=== PATIENT | female | born 1960 | race Caucasian/White ===

== ENCOUNTER → 2018-06-07 | Outpatient (CLI) | payer MEDICAID ==
[2018-06-07 10:08] VITALS: BP 146/83; PULSE 92; TEMP 97.7; BMI 34.3
--- NOTE | 2018-06-07 10:46 | P.HPOB ---
History of Present Illness H&P Date: 06/07/18 Chief Complaint: The patient is here for her routine gynecologic exam and mammogram. This is a 57-year-old G3 PIII with an LMP of 2006. She is status post BATSHEVA BSO for benign reasons. The patient is without gynecologic complaints. Review of Systems The patient has gained 12 pounds over the last year. She has recently started to try to eat healthier. She denies respiratory, cardiac, or G.I. problems. 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 She has no history of STDs. History of Any Multi-Drug Resistant Organisms: None Reported Past Surgical History: Section (Times 3), Hysterectomy (BATSHEVA BSO in 2006 ) Additional Past Surgical History / Comment(s): Colonoscopy 2011. Past Psychological History: No Psychological Hx Reported Smoking Status: Unknown if ever smoked Past Alcohol Use History: Occasional (4 per month) Past Drug Use History: None Reported Additional History: She is and is currently not seeing anybody at this time. 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. - Past Family History Father Family Medical History: Myocardial Infarction ([place]) Mother Family Medical History: Deep Vein Thrombosis (DVT) Medications and Allergies Home Medications Medication Instructions Recorded Confirmed Type No Known Home Medications 06/07/18 06/07/18 History Allergies Allergy/AdvReac Type Severity Reaction Status Date / Time No Known Allergies Allergy Unverified 06/07/18 10:02 Exam Vital Signs Temp Pulse BP 06/07/18 10:02 97.7 F 92 146/83 Intake and Output 06/06/18 06/07/18 06/07/18 22:59 06:59 14:59 Other: Weight 90.718 kg This is a well-developed well-nourished heavyset white female who is alert and oriented times 3 in no acute distress. HEENT: Within normal limits. NECK: Supple without mass or thyromegaly. CHEST AND LUNGS: Clear to auscultation. HEART: Regular rate and rhythm. BREASTS: Are without mass or discharge. AXILLARY EXAM: Negative for adenopathy. BACK: Negative for CVA tenderness. ABDOMEN: Soft, obese, nontender, without palpable masses. There is erythema in the crease beneath the left panus and in the crease of the groin. This area measures approximately 10 x 5 cm. PELVIC EXAM: External genitalia appears normal with mild atrophy. Vagina appears normal with mild atrophy. There is no evidence of prolapse. Bimanual examination is negative for mass or tenderness. RECTAL EXAM: Rectovaginal exam is negative for mass or tenderness and is negative for occult blood. EXTREMITIES: Nontender. IMPRESSION: 1. 57-year-old menopausal female status post BATSHEVA BSO with normal gynecologic exam. 2. Erythema intertrigo go in the crease of the left groin and beneath the panus. 3. Mildly elevated blood pressure. PLAN: 1. Pap smears have been discontinued. 2. Self breast awareness was discussed. 3. Screening mammogram will be done today. 4. STD prevention was discussed. 5. An electronic prescription will be sent for nystatin powder b.i.d. to the affected area. The prescription will be sent to [facility] pharmacy. 6. I have recommended that she check her own blood pressure on a regular basis. She will follow-up with Dr. Darrick Santana for blood pressure elevations and for her abnormal fasting blood sugar from last year. She states she will make an appointment to see him. 7. Have recommended that she eat healthier for weight control. 8. She will return one year.
--- NOTE | 2018-06-08 10:10 | MM ---
Reason for exam: screening (asymptomatic). Last mammogram was performed 2 years and 1 month ago. History: Patient is postmenopausal. Took estrogen for 3 years 6 months beginning at age 47. Physical Findings: A clinical breast exam by your physician is recommended on an annual basis and results should be correlated with mammographic findings. MG 3D Screening Mammo W/Cad Bilateral CC and MLO view(s) were taken. Prior study comparison: May 20, 2016, bilateral MG 3d screening mammo w/cad. June 05, 2014, bilateral MG screening mammo w CAD. The breast tissue is heterogeneously dense. This may lower the sensitivity of mammography. Finding: There are typically benign round calcifications in both breasts. There is no discrete abnormality. Stable grouped benign round calcifications in the left breast middle depth upper aspect. ASSESSMENT: Benign, BI-RAD 2 RECOMMENDATION: Routine screening mammogram of both breasts in 1 year.
== END ==
LOC: WWCWWP 09:54
PROVIDERS: ATTEND Obstetrics & Gynecology
DX: Z12.31 Encounter for screening mammogram for malignant neoplasm of breast (principal)
CPT/HCPCS: 77063; 77067

== ENCOUNTER → 2019-09-19 | Outpatient (CLI) | payer MEDICAID ==
--- NOTE | 2019-09-20 08:34 | MM ---
Reason for exam: screening (asymptomatic). Last mammogram was performed 1 year and 3 months ago. History: Patient is postmenopausal. Took estrogen for 3 years 6 months beginning at age 47. Physical Findings: A clinical breast exam by your physician is recommended on an annual basis and results should be correlated with mammographic findings. MG 3D Screening Mammo W/Cad Bilateral CC and MLO view(s) were taken. Prior study comparison: June 07, 2018, bilateral MG 3d screening mammo w/cad. May 20, 2016, bilateral MG 3d screening mammo w/cad. The breast tissue is heterogeneously dense. This may lower the sensitivity of mammography. Central asymmetric density right MLO view is more defined. ASSESSMENT: Incomplete: need additional imaging evaluation, BI-RAD 0 RECOMMENDATION: Special view mammogram of the right breast. (3D) If lesion persists on supplemental views, image directed ultrasound is recommended. [facility] will attempt to contact patient to return for supplemental views and ultrasound if indicated.
== END | disposition home or self-care (01) ==
LOC: RADMAMWWP 07:00
PROVIDERS: ATTEND Family Medicine
DX: Z12.31 Encounter for screening mammogram for malignant neoplasm of breast (principal)
CPT/HCPCS: 77063; 77067

== ENCOUNTER → 2019-10-02 | Outpatient (CLI) | payer MEDICAID ==
--- NOTE | 2019-10-03 08:27 | MM ---
Reason for exam: additional evaluation requested from abnormal screening. Last mammogram was performed less than 1 month ago. History: Patient is postmenopausal. Took estrogen for 3 years 6 months beginning at age 47. Physical Findings: Nurse did not find any significant physical abnormalities on exam. MG 3D Work Up W/Cad RT Spot compression CC, spot compression MLO, and LM view(s) were taken of the right breast. Prior study comparison: September 19, 2019, bilateral MG 3d screening mammo w/cad. June 07, 2018, bilateral MG 3d screening mammo w/cad. The breast tissue is heterogeneously dense. This may lower the sensitivity of mammography. Benign appearing calcifications in the right breast. No suspicious abnormality. These results were verbally communicated with the patient and result sheet given to the patient on 10/02/19. ASSESSMENT: Benign, BI-RAD 2 RECOMMENDATION: Return to routine screening mammogram schedule for both breasts.
== END | disposition home or self-care (01) ==
LOC: RADMAMWWP 14:12
PROVIDERS: ATTEND Family Medicine
DX: R92.8 Other abnormal and inconclusive findings on diagnostic imaging of breast (principal)
CPT/HCPCS: 77061; 77065

== ENCOUNTER → 2019-11-14 | Outpatient (CLI) | payer MEDICAID ==
--- NOTE | 2019-11-14 20:46 | CONS ---
CONSULTATION REASON FOR CONSULTATION: Sleep apnea. Vandana is 59. 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 She has been feeling very tired, fatigued and sleepy during the day. She is having difficulty with concentration. No falling asleep while driving. She also moved in with a fiance approximately a year ago and she has been noted to have loud snoring and apneas at night time. There is a high suspicion for sleep apnea, and based on that the patient came to see me here in the sleep center. She goes to bed around 9 p.m., wakes up at 5:15 a.m. in the morning. On weekends she sleeps between 10 p.m. and 7 a.m. in the morning. Her snoring is rather loud, especially when she drinks alcohol. Ahmeek Score is 6 for now. PAST MEDICAL HISTORY: Negative. PAST SURGICAL HISTORY: Her past surgical history includes and hysterectomy. DRUG ALLERGIES: NOT KNOWN. MEDICATIONS: None. SOCIAL HISTORY: Ex-smoker; quit 3 years ago. No history of alcoholism. No history of IV drugs. FAMILY HISTORY: Father had dementia. Mother had coronary artery disease and liver failure. REVIEW OF SYSTEMS: Fourteen-point review of systems was done. Positive findings were all mentioned above in the history of present illness. No insomnia. No choking or gasping sensation at night time. No restlessness in the lower extremities. No sleepwalking or sleeptalking. No anxiety or panic attacks. No palpitation. No heartburn. No claustrophobia. No anxiety. No depression. PHYSICAL EXAMINATION: VITAL SIGNS: BP is 127/80, pulse 91, respiratory rate 16, temperature 98.1, saturation 97% on room air. Height is 5 feet 3 inches, weight 200 and neck size 15-1/2 inches. Ahmeek Score is 6. BMI 34.9. GENERAL APPEARANCE: Calm, comfortable. HEAD: Atraumatic, normocephalic. She has dentures. NECK: Supple. No JVD. No goiter or neck masses. Mallampati class IV. LUNGS: Clear to auscultation. HEART: Heart sounds are regular rate and rhythm. Normal S1, S2. No S3, S4. No murmurs. ABDOMEN: Soft, nontender. No organomegaly. EXTREMITIES: No edema. No cyanosis or clubbing. NEUROLOGIC: Awake and alert. There is no focal neurological deficit. IMPRESSION: 1. Hypersomnia with high likelihood obstructive sleep apnea. Ahmeek score is 6, yet the patient has a high likelihood for sleep apnea based on her history of loud snoring and witnessed apneas. 2. Obesity with body mass index of 34.9. PLAN: 1. Proceed with a home sleep study to evaluate the patient for sleep apnea and treat accordingly. 2. Encourage weight loss. 3. Cut down the alcohol drinking, especially at night time. 4. Implement good sleep hygiene measures. 5. Will continue to follow. MMODL / IJN: [id number] /
== END | disposition home or self-care (01) ==
LOC: SLEEP 15:43
PROVIDERS: ATTEND Internal Medicine Critical Care Medicine
DX: G47.33 Obstructive sleep apnea (adult) (pediatric) (principal); E66.9 Obesity, unspecified; Z68.34 Body mass index [BMI] 34.0-34.9, adult; R53.83 Other fatigue; Z87.891 Personal history of nicotine dependence; Z90.710 Acquired absence of both cervix and uterus
CPT/HCPCS: 99211

== ENCOUNTER 2021-05-21 07:44 | Day surgery (SDC) | payer MEDICAID ==
--- NOTE | 2021-05-21 06:44 | P.GSHP ---
History of Present Illness H&P Date: 05/21/21 CHIEF COMPLAINT: Colon screen HISTORY OF PRESENT ILLNESS: The patient is a 60-year-old female who presents for colon screen. Lower endoscopy was offered for further evaluation and management. PAST MEDICAL HISTORY: Please see list. PAST SURGICAL HISTORY: Please see list. MEDICATIONS: Please see list. ALLERGIES: Please see list. SOCIAL HISTORY: No illicit drug use FAMILY HISTORY: No reports of Crohn disease or ulcerative colitis. REVIEW OF ORGAN SYSTEMS: CONSTITUTIONAL: No reports of fevers or chills. PHYSICAL EXAM: VITAL SIGNS: Stable GENERAL: Well-developed pleasant in no acute distress. HEENT: No scleral icterus. Extraocular movements grossly intact. Moist buccal mucosa. NECK: Supple without lymphadenopathy. CHEST: Unlabored respirations. Equal bilateral excursions. CARDIOVASCULAR: Regular rate and rhythm. Distal 2+ pulses. ABDOMEN: Soft, nontender, nondistended. MUSCULOSKELETAL: No clubbing, cyanosis, or edema. ASSESSMENT: 1. Colon screen. PLAN: 1. 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 She has no history of STDs. History of Any Multi-Drug Resistant Organisms: None Reported Past Surgical History: Section, Hysterectomy Additional Past Surgical History / Comment(s): Colonoscopy 2012,c section x3, cysts removed from wrist Past Anesthesia/Blood Transfusion Reactions: No Reported Reaction Smoking Status: Former smoker - Past Family History Father Family Medical History: Myocardial Infarction ([place]) Mother Family Medical History: Deep Vein Thrombosis (DVT) Medications and Allergies Home Medications Medication Instructions Recorded Confirmed Type No Known Home Medications 05/16/21 05/16/21 History Allergies Allergy/AdvReac Type Severity Reaction Status Date / Time No Known Allergies Allergy Unverified 05/16/21 15:20
[~2021-05-21 07:44] MED LIST: LACTATED RINGERS 1,000 ML IV SCH; LIDOCAINE 1% (10MG/ML) FOR IV START INTRADERMA PRN
[2021-05-21 08:12] VITALS: RESP 16; TEMP 96.9
[2021-05-21] MEDS ORDERED: PROPOFOL 10 MG/ML 20 ML VIAL IV ONE (08:31)
--- NOTE | 2021-05-21 09:07 | P.PCN ---
Date of Procedure: 05/21/21 Description of Procedure: PREOPERATIVE DIAGNOSIS: Personal history of colon polyps Colonoscopy screening POSTOPERATIVE DIAGNOSIS: Tubular adenoma sigmoid colon Sigmoid diverticulosis with stricture Internal and external hemorrhoids, grade 2 OPERATION: Colonoscopy to the ascending colon Colonoscopy with hot snare polypectomy SURGEON: Rose Hale MD. ANESTHESIA: MAC. INDICATIONS: The patient is an 60-year-old male personal history of colon polyps. Last colonoscopy 8 years ago. Benefits and risks were described and informed consent was obtained. DESCRIPTION OF PROCEDURE: The patient had undergone Sutab prep. The patient had been brought into the operating room and laid in the left lateral decubitus position. After adequate intravenous sedation, the rectum was examined with 2% lidocaine jelly. External hemorrhoids were encountered. The rectal tone was within normal limits. No l esions were palpated in the rectal vault. An Olympus colonoscope was advanced until the cecum, ileocecal valve and appendiceal orifice were clearly viewed. The prep was excellent. Sigmoid diverticulosis with highly redundant sigmoid colon and stricture at 30 cm from the anal verge was encountered. Colonic polyps were found and removed. No evidence of focal colitis was found. Retroflexion of the scope demonstrated grade 2 internal hemorrhoids without active bleeding or inflammation. The colon was desufflated. The patient had tolerated the procedure well. Withdrawal time was over 6 minutes. FINDINGS: Aronchick preparation quality scale 1 (1-5) Internal hemorrhoids, grade 2 External hemorrhoids, grade 2. No arteriovenous malformations. Sigmoid diverticulosis with stricture at 30 cm from the anal verge Highly redundant sigmoid colon Removal of 1 polyp: - Snare polypectomy 6 mm tubulovillous adenoma polyp, sigmoid colon No focal colitis. RECOMMENDATIONS: Repeat colonoscopy 2 years, 2022 Plan - Discharge Summary Discharge Rx Participant: No New Discharge Prescriptions: Continue No Known Home Medications Discharge Medication List No Known Home Medications 05/16/21 [History] Follow up Appointment(s)/Referral(s): Rose Hale MD [STAFF PHYSICIAN] - 05/27/21 Patient Instructions/Handouts: Diverticulosis Diet (GEN), Diverticulosis (GEN), Colorectal Polyps (GEN) Activity/Diet/Wound Care/Special Instructions: Repeat colonoscopy 2 years, 2022 Discharge Disposition: HOME SELF-CARE
[2021-05-21 09:18] VITALS: BP 98/66; PULSE 62
== END 2021-05-21 09:46 | disposition home or self-care (01) ==
LOC: ORWHC2ENDO 07:44
PROVIDERS: ATTEND Surgery Plastic and Reconstructive Surgery
DX: Z12.11 Encounter for screening for malignant neoplasm of colon (principal); K57.90 Diverticulosis of intestine, part unspecified, without perforation or abscess without bleeding; K64.8 Other hemorrhoids; K64.4 Residual hemorrhoidal skin tags; D12.5 Benign neoplasm of sigmoid colon; Z87.891 Personal history of nicotine dependence
CPT/HCPCS: 88305; 45385; J2704

== ENCOUNTER → 2021-05-26 | Outpatient (CLI) | payer MEDICAID ==
--- NOTE | 2021-05-30 13:26 | MM ---
Reason for exam: screening (asymptomatic). Last mammogram was performed 1 year and 8 months ago. History: Patient is postmenopausal. Took estrogen for 3 years 6 months beginning at age 47. Physical Findings: A clinical breast exam by your physician is recommended on an annual basis and results should be correlated with mammographic findings. MG 3D Screening Mammo W/Cad Bilateral CC and MLO view(s) were taken. Prior study comparison: October 02, 2019, right breast MG 3d work up w/cad RT. September 19, 2019, bilateral MG 3d screening mammo w/cad. The breast tissue is heterogeneously dense. This may lower the sensitivity of mammography. ASSESSMENT: Benign, BI-RAD 2 RECOMMENDATION: Routine screening mammogram of both breasts in 1 year.
== END | disposition home or self-care (01) ==
LOC: RADMAMWWP 12:56
PROVIDERS: ATTEND Family Medicine
DX: Z12.31 Encounter for screening mammogram for malignant neoplasm of breast (principal); Z78.0 Asymptomatic menopausal state; Z79.818 Long term (current) use of other agents affecting estrogen receptors and estrogen levels
CPT/HCPCS: 77063; 77067

== ENCOUNTER 2021-07-23 08:49 | Day surgery (SDC) | payer MEDICAID ==
[2021-07-17 17:31] VITALS: BMI 32.1
[~2021-07-23 08:49] MED LIST changes: +DEXAMETHASONE SOD PHOSPHATE 4 MG/ML 1 ML VIAL IV ONE; +DEXAMETHASONE SOD PHOSPHATE 4 MG/ML 1 ML VIAL IV PRN; +FAMOTIDINE 20 MG/2 ML VIAL IV PRN; +HYDROmorphone 0.5 MG/0.5 ML SYRINGE IVP PRN; -LIDOCAINE 1% (10MG/ML) FOR IV START INTRADERMA PRN; +ONDANSETRON 4 MG/2 ML VIAL IVP ONE; +ONDANSETRON 4 MG/2 ML VIAL IVP PRN; +OXYMETAZOLINE 0.05% NASL SPRAY 1 SPRAY BOTTLE EA NOSTRIL PRN
[2021-07-23] MEDS ORDERED: LIDOCAINE 1% (10MG/ML) FOR IV START INTRADERMA ONE (09:32)
[2021-07-23] MEDS ORDERED: LIDOCAINE 0.5%-EPI 1:200,000 50 ML VIAL SUBMUCOSAL ONE ×2 (10:16→10:37)
[2021-07-23] MEDS ORDERED: MIDAZOLAM 2 MG/2 ML VIAL ONE (10:20)
[2021-07-23] MEDS ORDERED: PROPOFOL 10 MG/ML 20 ML VIAL IV ONE (10:20)
[2021-07-23] MEDS ORDERED: SUCCINYLCHOLINE CHLORIDE 100 MG/5 ML SYR IV ONE (10:20)
[2021-07-23] MEDS ORDERED: fentaNYL (PF) 50 MCG/ML 2 ML AMP ONE (10:20)
[2021-07-23] MEDS ORDERED: LIDOCAINE 1% INJ 10MG/ML (20 ML MDV) ONE (10:20)
--- NOTE | 2021-07-23 10:58 | P.OP ---
Date of Procedure: 07/23/21 Preoperative Diagnosis: Deviated nasal septum Inferior turbinate hypertrophy Postoperative Diagnosis: Same Procedure(s) Performed: Septoplasty Outfracture and submucous resection of the inferior turbinates Anesthesia: MARIOA Surgeon: oBris Juarez Estimated Blood Loss (ml): 3 Pathology: other (Nasal septal bone and cartilage) Condition: stable Disposition: PACU Indications for Procedure: This 61-year-old white female with chronic nasal airway obstruction bilateral left greater than right Operative Findings: Nasal septum deviated to the left with inferior turbinate hypertrophy bilateral Description of Procedure: DESCRIPTION OF PROCEDURE: The patient was brought to the operative suite, placed in the supine position. The patient underwent induction of general anesthesia with oral endotracheal intubation without difficulty. The patient was prepped and draped in the usual aseptic fashion. 1% lidocaine with 1:100,000 epinephrine was infused submucosally on both sides of the nasal septum. While this was taking vasoconstrictive effect, the inferior turbinates were infractured with a [place] elevator. Partial submucous resection of the inferior turbinates was performed with Coblation device ablating a portion of the submucosal and inferior turbinate bone soft tissue. The inferior turbinates were then outfractured with a [place] elevator. A left hemitransfixion incision was then made through the mucoperichondrial. Mucoperiosteal flap on the left elevated. Bony cartilaginous junction was disarticulated and mucoperiosteal flap on the right was elevated. Bony nasoseptal deformity were removed with Viki forceps and an inferior cartilaginous strip was removed, leaving a full 1.5 cm caudal strut. Checking intranasally, this corrected the nasal septal deformities and the hemitransfixion incision was closed with running 4-0 chromic suture. The bilateral Bacon airway splints coated in bacitracin ointment were placed in the nasal cavities and sutured transseptally with 4-0 nylon suture. The patient was then suctioned in an orogastric fashion. The patient was allowed to emerge from general anesthesia, having tolerated the procedure well and was extubated in the operating suite, transferred to postoperative recovery area in satisfactory condition.
[2021-07-23 11:15] VITALS: TEMP 96.8
[2021-07-23 11:54] VITALS: RESP 16
[2021-07-23 12:25] VITALS: BP 126/74; PULSE 68
[2021-07-23] MEDS ORDERED: HYDROcodone/APAP 5-325MG 1 EACH TAB PO ONE (12:26)
== END 2021-07-23 13:08 | disposition home or self-care (01) ==
LOC: OR 08:49
PROVIDERS: ATTEND Otolaryngology
DX: J34.3 Hypertrophy of nasal turbinates (principal); J34.2 Deviated nasal septum; G47.33 Obstructive sleep apnea (adult) (pediatric); Z79.899 Other long term (current) drug therapy; Z87.891 Personal history of nicotine dependence
CPT/HCPCS: 30520; 30930; 88300; J2250; J1100; J2405; J0690; J2001; J3010; J0330; J2704; J1170

== ENCOUNTER 2021-08-14 09:32 | Observation (INO) | payer MEDICAID ==
[2021-08-14] MEDS ORDERED: VANCOMYCIN IV PER PHARMACY 1 EACH MISC MISCELLANE PRN (09:34)
[2021-08-14] MEDS ORDERED: AMPICILLIN-SULBACTAM 3 GM in SODIUM CHLORIDE 0.9% 100 ML IVPB STA (09:35)
[2021-08-14] MEDS ORDERED: ACETAMINOPHEN TAB 325 MG TAB PO PRN (10:18)
[2021-08-14] MEDS ORDERED: MORPHINE SULFATE 4 MG/ML SYRINGE IV PRN (10:18)
[2021-08-14] MEDS ORDERED: traMADol 50 MG TAB PO PRN (10:18)
[2021-08-14] MEDS ORDERED: NALOXONE 0.4 MG/ML 1 ML VIAL IV PRN (10:18)
--- NOTE | 2021-08-14 10:18 | ED ---
General Adult HPI - General Chief complaint: Skin/Abscess/Foreign Body Stated complaint: Abcess on back, sent from PCP Time Seen by Provider: 08/14/21 09:34 Source: patient, RN/MD, RN notes reviewed Mode of arrival: ambulatory Limitations: no limitations - History of Present Illness Initial comments: Patient is a pleasant 61-year-old female presenting to the emergency department with concerns with abscess on her back. This is been present for the past couple of weeks. Patient has had it I&D by her primary care physician and has been on antibiotics. This has worsened despite this. No fevers. Discomfort is waxing and waning, mild at this time. No history of chronic abscesses or similar problems previously. - Related Data Home Medications Medication Instructions Recorded Confirmed No Known Home Medications 05/16/21 07/23/21 Allergies Allergy/AdvReac Type Severity Reaction Status Date / Time No Known Allergies Allergy Verified 08/14/21 09:58 Review of Systems ROS Statement: Those systems with pertinent positive or pertinent negative responses have been documented in the HPI. ROS Other: All systems not noted in ROS Statement are negative. 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 She has no history of STDs. History of Any Multi-Drug Resistant Organisms: None Reported Past Surgical History: Section, Hysterectomy Additional Past Surgical History / Comment(s): Colonoscopy 2012,c section x3, cysts removed from wrist Past Anesthesia/Blood Transfusion Reactions: No Reported Reaction Past Psychological History: No Psychological Hx Reported Smoking Status: Former smoker Past Alcohol Use History: None Reported Past Drug Use History: None Reported - Past Family History Father Family Medical History: Myocardial Infarction ([place]) Mother Family Medical History: Deep Vein Thrombosis (DVT) General Exam Limitations: no limitations General appearance: alert, in no apparent distress Head exam: Present: normocephalic Eye exam: Present: normal appearance Neck exam: Present: normal inspection Respiratory exam: Present: normal lung sounds bilaterally Cardiovascular Exam: Present: regular rate, normal rhythm GI/Abdominal exam: Present: soft. Absent: tenderness Extremities exam: Present: normal inspection Back exam: Present: other (Abscess right mid back) Neurological exam: Present: alert Psychiatric exam: Present: normal affect, normal mood Skin exam: Present: other (Right mid back with approximately 3.5 x 3.5 abscess. It is open with mild purulent drainage. Mild tenderness. Erythema present in the area of abscess.) Course Vital Signs 08/14/21 09:55 Temperature 98.4 F Pulse Rate 82 Respiratory 18 Rate Blood Pressure 127/70 O2 Sat by Pulse 98 Oximetry Medical Decision Making - Medical Decision Making Case discussed with practitioner Maximilian, covering with Dr. Santana. He would like patient admitted with IV Unasyn and vancomycin as well as infectious disease consult. Patient is made aware of this. Disposition Clinical Impression: Back abscess Disposition: ADMITTED IP TO THIS HOSP Is patient prescribed a controlled substance at d/c from ED?: No Referrals: Darrick Santana MD [Primary Care Provider] - 1-2 days Decision Time: 10:18
[2021-08-14 10:51] LABS: Basophils % (A) 0 %; Eosinophils # (A) 0.2 k/uL (0-0.7); Eosinophils % (A) 2 %; HCT 46.4 % (34.0-46.0); HGB 15.9 gm/dL (11.4-16.0); Lymphocytes # (A) 2.1 k/uL (1.0-4.8); Lymphocytes % (A) 19 %; MCH 30.1 pg (25.0-35.0); MCHC 34.3 g/dL (31.0-37.0); MCV 87.7 fL (80.0-100.0); Mean Platelet Volume 8.2; Monocytes # (A) 0.5 k/uL (0-1.0); Monocytes % (A) 5 %; Neutrophils # (A) 7.9 k/uL (1.3-7.7); Neutrophils % (A) 73 %; Platelet Count 249 k/uL (150-450); RBC 5.29 m/uL (3.80-5.40); RDW 12.6 % (11.5-15.5); WBC 10.8 k/uL (3.8-10.6)
[2021-08-14] MEDS: SODIUM CHLORIDE 0.9% 1,000 ML IV SCH ×2 (10:57→20:42)
[2021-08-14 11:09] LABS: INR 1.1 (<1.2); Partial Thromboplastin Time 22.2 sec (22.0-30.0); Prothrombin Time 11.3 sec (9.0-12.0)
[2021-08-14 11:15] LABS: ALT 39 U/L (4-34); AST 26 U/L (14-36); African American GFR (CKD) >90 (>60 ml/min/1.73 sqM); Albumin 4.6 g/dL (3.5-5.0); Alkaline Phosphatase 123 U/L (38-126); Anion Gap 14 mmol/L; Blood Urea Nitrogen 16 mg/dL (7-17); Calcium 10.2 mg/dL (8.4-10.2); Carbon Dioxide 18 mmol/L (22-30); Chloride 108 mmol/L (98-107); Glucose 111 mg/dL (74-99); Non-African American GFR(CKD) >90 (>60 ml/min/1.73 sqM); Potassium 4.4 mmol/L (3.5-5.1); Sodium 140 mmol/L (137-145); Total Bilirubin 0.4 mg/dL (0.2-1.3); Total Protein 7.5 g/dL (6.3-8.2)
[2021-08-14] MEDS ORDERED: VANCOMYCIN 1,500 MG in SODIUM CHLORIDE 0.9% 250 ML IVPB ONE (11:30)
--- NOTE | 2021-08-14 14:06 | P.GSCN ---
<Anayeli Augustine - Last Filed: 08/14/21 13:58> History of Present Illness Consult date: 08/14/21 History of present illness: CHIEF COMPLAINT: Back abscess HISTORY OF PRESENT ILLNESS: This is a 61-year-old female who presents to the hospital with complaints of low back abscess that has been present for about 2 weeks. She denies any prior history of abscesses. Denies any history of MRSA or diabetes. Patient reports that the abscess on her back had increased in size and had increase in pain. She went to see her PCP and had an I&D on 08/12/2021 by the nurse practitioner in the office. And she was sent home with antibiotics. She reports taking antibiotics Bactrim and Ceftin for about a day and a half. She went back for her follow-up appointment. And was told that it looked worse and to present to the ER for IV antibiotics. The abscess is draining purulent bloody drainage. She denies any fever chills or sweats. Denies any nausea or vomiting. She denies any history of MRSA or diabetes. Patient denies any cardiac history. PAST MEDICAL HISTORY: See list. PAST SURGICAL HISTORY: See list. MEDICATIONS: See list. ALLERGIES: See list. SOCIAL HISTORY: No illicit drug use. REVIEW OF SYSTEMS: CONSTITUTIONAL: Denies fever or chills. HEENT: Denies blurred vision, vision changes, or eye pain. Denies hemoptysis ENDOCRINE: Denies heat or cold intolerance. CARDIOVASCULAR: Denies chest pain or pressure. RESPIRATORY: No shortness of breath. GASTROINTESTINAL: Denies abdominal pain. Denies nausea or vomiting. NEURO: Denies history of seizures. PSYCH: No depression or suicidal ideation HEMATOLOGIC: Denies bleeding disorders. LYMPHATIC: The patient denies any lumps and bumps around the neck. GENITOURINARY: Denies any blood in urine or increased urinary frequency. MUSCULOSKELETAL: Denies myalgias. Denies joint swelling. Denies decreased range of motion beyond patients baseline. SKIN: Denies pruitis. Denies rash. PHYSICAL EXAM: VITAL SIGNS: Reviewed GENERAL: Well-developed in no acute distress. HEENT: No sclera icterus. Extraocular movements grossly intact. Moist buccal mucosa. Head is atraumatic, normocephalic. Hears conversational speech. No nasal drainage. NECK: Supple without lymphadenopathy. CHEST: Non-labored respirations and equal bilateral excursions. CARDIOVASCULAR: Palpable 2+ radial pulses. ABDOMEN: Soft. Nondistended. Nontender MUSCULOSKELETAL: No clubbing or cyanosis. NEUROLOGIC: No focal or lateralizing signs. Cranial nerves II through XII grossly intact. PSYCH: Appropriate affect. Alert and oriented to person, place and time. SKIN: Circular back abscess 3 x 3 cm area of induration. There is some fluctua nce noted. It is draining a purulent bloody discharge. There is some mild erythema noted. Erythema appears decreased in size. LABORATORY DATA: WBC is 10.8 hemoglobin 15.9 platelets 249 INR 1.1 sodium 140 potassium 4.4 CO2 18 creatinine 0.71 Lactic acid 1.0 AST 26 ALT 39 alk phos 123 COVID-19 not detected Blood cultures pending IMAGING: ASSESSMENT: 1. Back abscess PLAN: -Patient will be scheduled for incision and drainage of abscess for tomorrow 08/15/[address] Hale -Keep patient nothing by mouth after midnight -Continue antibiotics per ID Thank you for this consultation Physician [employer] note has been reviewed by physician. Signing provider agrees with the documented findings, assessment, and plan of care. 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 She has no history of STDs. History of Any Multi-Drug Resistant Organisms: None Reported Past Surgical History: Section, Hysterectomy Additional Past Surgical History / Comment(s): Colonoscopy 2012,c section x3, cysts removed from wrist Past Anesthesia/Blood Transfusion Reactions: No Reported Reaction Past Psychological History: No Psychological Hx Reported Smoking Status: Former smoker Past Alcohol Use History: None Reported Past Drug Use History: None Reported - Past Family History Father Family Medical History: Myocardial Infarction ([place]) Mother Family Medical History: Deep Vein Thrombosis (DVT) Medications and Allergies Home Medications Medication Instructions Recorded Confirmed Type Acetaminophen Tab [Tylenol] 650 mg PO Q4H PRN 08/14/21 08/14/21 History Cefdinir [Omnicef] 300 mg PO Q12HR 08/14/21 08/14/21 History Sulfamethox-Tmp 800-160Mg [Bactrim 1 tab PO Q12HR 08/14/21 08/14/21 History DS 800-160 mg] Allergies Allergy/AdvReac Type Severity Reaction Status Date / Time No Known Allergies Allergy Verified 08/14/21 10:50 Surgical - Exam Vital Signs Temp Pulse Resp BP Pulse Ox 98.4 F 82 18 127/70 98 08/14/21 09:55 08/14/21 09:55 08/14/21 09:55 08/14/21 09:55 08/14/21 09:55 Results - Labs 08/14/21 10:30 08/14/21 10:30 Abnormal Lab Results - Last 24 Hours (Table) 08/14/21 08/14/21 Range/Units 10:30 10:30 WBC 10.8 H (3.8-10.6) k/uL Hct 46.4 H (34.0-46.0) % Neutrophils # 7.9 H (1.3-7.7) k/uL Chloride 108 H (98-107) mmol/L Carbon Dioxide 18 L (22-30) mmol/L Glucose 111 H (74-99) mg/dL ALT 39 H (4-34) U/L Diabetes panel 08/14/21 Range/Units 10:30 Sodium 140 (137-145) mmol/L Potassium 4.4 (3.5-5.1) mmol/L Chloride 108 H (98-107) mmol/L Carbon Dioxide 18 L (22-30) mmol/L BUN 16 (7-17) mg/dL Creatinine 0.71 (0.52-1.04) mg/dL Glucose 111 H (74-99) mg/dL Calcium 10.2 (8.4-10.2) mg/dL AST 26 (14-36) U/L ALT 39 H (4-34) U/L Alkaline Phosphatase 123 (38-126) U/L Total Protein 7.5 (6.3-8.2) g/dL Albumin 4.6 (3.5-5.0) g/dL Calcium panel 08/14/21 Range/Units 10:30 Calcium 10.2 (8.4-10.2) mg/dL Albumin 4.6 (3.5-5.0) g/dL Pituitary panel 08/14/21 Range/Units 10:30 Sodium 140 (137-145) mmol/L Potassium 4.4 (3.5-5.1) mmol/L Chloride 108 H (98-107) mmol/L Carbon Dioxide 18 L (22-30) mmol/L BUN 16 (7-17) mg/dL Creatinine 0.71 (0.52-1.04) mg/dL Glucose 111 H (74-99) mg/dL Calcium 10.2 (8.4-10.2) mg/dL Adrenal panel 08/14/21 Range/Units 10:30 Sodium 140 (137-145) mmol/L Potassium 4.4 (3.5-5.1) mmol/L Chloride 108 H (98-107) mmol/L Carbon Dioxide 18 L (22-30) mmol/L BUN 16 (7-17) mg/dL Creatinine 0.71 (0.52-1.04) mg/dL Glucose 111 H (74-99) mg/dL Calcium 10.2 (8.4-10.2) mg/dL Total Bilirubin 0.4 (0.2-1.3) mg/dL AST 26 (14-36) U/L ALT 39 H (4-34) U/L Alkaline Phosphatase 123 (38-126) U/L Total Protein 7.5 (6.3-8.2) g/dL Albumin 4.6 (3.5-5.0) g/dL <Rose Hale - Last Filed: 08/14/21 17:35> History of Present Illness History of present illness: As above. Please see additional documentation CHIEF COMPLAINT: Back abscess HISTORY OF PRESENT ILLNESS: The patient is a 61 year old female who reports 2 week history of initial boil along the mid back that progressed to an abscessincluding new moderate pain. she denies any prior episodes.Patient reports seeing her primary care provider after no improvement with local treatment with ointment. In the office, patient reports her abscess was drained. She had been on antibiotics less than a day. Due to the progressive nature of her abscess, patient was admitted for IV antibiotics. PAST MEDICAL HISTORY: See list and reviewed PAST SURGICAL HISTORY: See list and reviewed MEDICATIONS: See list and reviewed ALLERGIES: See list and reviewed SOCIAL HISTORY: See list and reviewed FAMILY HISTORY: See list and reviewed REVIEW OF ORGAN SYSTEMS: CONSTITUTIONAL: No fevers or chills. No recent weight loss. EYES: Denies any trouble with vision. No glasses. HEENT: No difficulties with hearing. No nosebleeds. No difficulty swallowing. RESPIRATORY: Denies pneumonia. Denies any troubles with breathing or dyspnea on exertion. CARDIOVASCULAR: Denies any chest pain, palpitations, or recent heart attacks. GASTROINTESTINAL: Denies fatty food intolerance. Denies change in bowel habits and gas bloat. GENITOURINARY: Prior total abdominal hysterectomy bilateral salpingo- oophorectomy. NEUROLOGICAL: Denies any numbness or tingling along the distal extremities. No seizure disorders or headaches. MUSCULOSKELETAL: Denies any back pain, stiffness or joint arthritis. SKIN: Recent skin abscess. PSYCHIATRIC: Denies current depression or suicidal thoughts. ENDOCRINE: Denies current thyroid disorders. Denies any blood sugar glucose intolerance. HEME/LYMPHATIC: Denies any lumps and bumps around the neck. No recent deep venous thrombosis. ALLERGY/IMMUNOLOGY: No immunoglobulin therapy. No immune deficiencies. BREAST: Denies current breast lumps, pain or nipple discharge. PHYSICAL EXAM: VITALS: Reviewed CONSTITUTIONAL: Well developed and in no acute distress. EYES: Conjuctivae without sclera icterus. Extraocular movements grossly intact. HEAD, EARS, NOSE, THROAT: Moist buccal mucosa. Head is atraumatic, normocephalic. Hears conversational speech. No nasal drainage. NECK: No gross JV distention. No thyroidomegaly. RESPIRATORY: Non-labored respirations and equal bilateral excursions. No gross wheezes. CARDIOVASCULAR: Regular rate and rhythm. Extremities without moderate edema. ABDOMEN: Nontender. No peritonitis. LYMPH: No gross neck lymphadenopathy. MUSCULOSKELETAL: Nail and fingers with good capillary refill. SKIN: Warm and well perfused with good skin turgor. Mid back abscess hyperemia 3 cm with drainage NEUROLOGIC: Cranial nerves II through XII grossly intact. No focal or lateral izing signs. PSYCH: Appropriate affect. Alert and oriented to person, place and time. Displays appropriate insight. CLINCAL LABS: Reviewed. WBC mildly elevated over 10,000. ASSESSMENT: 1. Back abscess PLAN: 1. Patient reports prior pain along the back has improved as she has active drainage. 2. She also reports that she is getting this weekend like to be discharged home. Recommend discharge home with oral antibiotics 3. Recommend warm compresses to allow for drainage Thank you for this kind consultation. Surgical - Exam Vital Signs Temp Pulse Resp BP Pulse Ox 98.4 F 82 18 127/70 98 08/14/21 09:55 08/14/21 09:55 08/14/21 09:55 08/14/21 09:55 08/14/21 09:55 Results - Labs 08/14/21 10:30 08/14/21 10:30 Abnormal Lab Results - Last 24 Hours (Table) 08/14/21 08/14/21 Range/Units 10:30 10:30 WBC 10.8 H (3.8-10.6) k/uL Hct 46.4 H (34.0-46.0) % Neutrophils # 7.9 H (1.3-7.7) k/uL Chloride 108 H (98-107) mmol/L Carbon Dioxide 18 L (22-30) mmol/L Glucose 111 H (74-99) mg/dL ALT 39 H (4-34) U/L Microbiology - Last 24 Hours (Table) 08/14/21 11:20 Wound Culture - Preliminary Back Diabetes panel 08/14/21 Range/Units 10:30 Sodium 140 (137-145) mmol/L Potassium 4.4 (3.5-5.1) mmol/L Chloride 108 H (98-107) mmol/L Carbon Dioxide 18 L (22-30) mmol/L BUN 16 (7-17) mg/dL Creatinine 0.71 (0.52-1.04) mg/dL Glucose 111 H (74-99) mg/dL Calcium 10.2 (8.4-10.2) mg/dL AST 26 (14-36) U/L ALT 39 H (4-34) U/L Alkaline Phosphatase 123 (38-126) U/L Total Protein 7.5 (6.3-8.2) g/dL Albumin 4.6 (3.5-5.0) g/dL Calcium panel 08/14/21 Range/Units 10:30 Calcium 10.2 (8.4-10.2) mg/dL Albumin 4.6 (3.5-5.0) g/dL Pituitary panel 08/14/21 Range/Units 10:30 Sodium 140 (137-145) mmol/L Potassium 4.4 (3.5-5.1) mmol/L Chloride 108 H (98-107) mmol/L Carbon Dioxide 18 L (22-30) mmol/L BUN 16 (7-17) mg/dL Creatinine 0.71 (0.52-1.04) mg/dL Glucose 111 H (74-99) mg/dL Calcium 10.2 (8.4-10.2) mg/dL Adrenal panel 08/14/21 Range/Units 10:30 Sodium 140 (137-145) mmol/L Potassium 4.4 (3.5-5.1) mmol/L Chloride 108 H (98-107) mmol/L Carbon Dioxide 18 L (22-30) mmol/L BUN 16 (7-17) mg/dL Creatinine 0.71 (0.52-1.04) mg/dL Glucose 111 H (74-99) mg/dL Calcium 10.2 (8.4-10.2) mg/dL Total Bilirubin 0.4 (0.2-1.3) mg/dL AST 26 (14-36) U/L ALT 39 H (4-34) U/L Alkaline Phosphatase 123 (38-126) U/L Total Protein 7.5 (6.3-8.2) g/dL Albumin 4.6 (3.5-5.0) g/dL Assessment and Plan (1) Obesity due to excess calories Current Visit: Yes Status: Acute Code(s): E66.09 - OTHER OBESITY DUE TO EXCESS CALORIES SNOMED Code(s): 069291944 (2) History of hysterectomy Current Visit: Yes Status: Acute Code(s): Z90.710 - ACQUIRED ABSENCE OF BOTH CERVIX AND UTERUS SNOMED Code(s): 416203066 (3) Back abscess Current Visit: Yes Status: Acute Code(s): L02.212 - CUTANEOUS ABSCESS OF BACK [ANY PART, EXCEPT BUTTOCK] SNOMED Code(s): 044530593
[2021-08-14] MEDS: AMPICILLIN-SULBACTAM 1.5 GM in SODIUM CHLORIDE 0.9% 50 ML IVPB SCH (17:14)
--- NOTE | 2021-08-14 18:14 | P.HPIM ---
History of Present Illness H&P Date: 08/14/21 Chief Complaint: Posterior midthoracic abscess 61-year-old female was sent to the emergency room department for worsening of posterior mid thoracic back abscess post incision and drainage 2 days prior, increasing erythema and tenderness to touch. Patient was evaluated in emergency room room with diagnostic labs, mild leukocytosis and dehydration noted. Patient was placed on Unasyn and vancomycin for abscess coverage. Consultation with general surgery for possible incision and drainage, and consultation with infectious disease for expert opinion with antibiotic therapy. Patient was seen by infectious disease and general surgery. No plan for incision and drainage at this time from a surgical standpoint. Awaiting recommendation from infectious disease for discharge antibiotics. 08/14/2021 Patient seen and examined at bedside. Patient resting comfortably in no acute signs of distress. Patient endorses mild back pain located in midthoracic area. Patient denies fever, chills, shortness of breath, chest pain, palpitations, abdominal pain or nausea at this time. Vital signs and diagnostic testing reviewed. No adverse reactions noted to antibiotic therapy. Review of Systems Constitutional: Reports as per HPI Cardiovascular: Reports as per HPI Respiratory: Reports as per HPI Gastrointestinal: Reports as per HPI Genitourinary: Reports as per HPI Musculoskeletal: Reports as per HPI Integumentary: Reports as per HPI Neurological: Reports as per HPI Psychiatric: Reports as per HPI, Reports confusion Hematologic/Lymphatic: Reports as per HPI Allergic/Immunologic: Reports as per HPI Past Medical History Past Medical History: No Reported History Additional Past Medical History / Comment(s): Past [employer] history: she used ERT for 5 years after her BATSHEVA BSO in 2006. She has no history of STDs. History of Any Multi-Drug Resistant Organisms: None Reported Past Surgical History: Section, Hysterectomy Additional Past Surgical History / Comment(s): Colonoscopy 2012,c section x3, cysts removed from wrist Past Anesthesia/Blood Transfusion Reactions: No Reported Reaction Past Psychological History: No Psychological Hx Reported Smoking Status: Former smoker Past Alcohol Use History: None Reported Additional Past Alcohol Use History / Comment(s): quit smoking 2015,started smoking at age 17,<1ppd Past Drug Use History: None Reported - Past Family History Father Family Medical History: Myocardial Infarction ([place]) Mother Family Medical History: Deep Vein Thrombosis (DVT) Medications and Allergies Home Medications and Allergies Comment(s): Medication and ALLERGIES reviewed Home Medications Medication Instructions Recorded Confirmed Type Acetaminophen Tab [Tylenol] 650 mg PO Q4H PRN 08/14/21 08/14/21 History Cefdinir [Omnicef] 300 mg PO Q12HR 08/14/21 08/14/21 History Sulfamethox-Tmp 800-160Mg [Bactrim 1 tab PO Q12HR 08/14/21 08/14/21 History DS 800-160 mg] Allergies Allergy/AdvReac Type Severity Reaction Status Date / Time No Known Allergies Allergy Verified 08/14/21 10:50 Physical Exam Vitals: Vital Signs Temp Pulse Pulse Resp BP BP Pulse Ox 08/14/21 14:58 98.1 F 73 18 110/72 99 08/14/21 13:30 18 08/14/21 13:05 97.5 F L 82 18 124/82 98 08/14/21 12:50 98.2 F 70 18 124/94 99 08/14/21 09:55 98.4 F 82 18 127/70 98 Intake and Output 08/14/21 08/14/21 08/14/21 06:59 14:59 22:59 Intake Total 120 120 Balance 120 120 Intake: Oral 120 120 Other: # Voids 1 1 Weight 83.915 kg - Constitutional General appearance: cooperative, no acute distress - EENT Eyes: EOMI, PERRLA, normal appearance ENT: normal oropharynx Ears: bilateral: normal - Neck Neck: normal ROM Carotids: bilateral: upstroke normal Thyroid: bilateral: normal size - Respiratory Respiratory: bilateral: CTA (Anterior and posterior lung perry) - Cardiovascular Heart rate: 84 Rhythm: regular Heart sounds: normal: S1, S2 radial pulse Peripheral Pulses: bilateral: Normal dorsalis pedis Peripheral Pulses: bilateral: Normal - Gastrointestinal General gastrointestinal: normal bowel sounds, soft - Integumentary Integumentary: normal turgor - Neurologic Neurologic: CNII-XII intact - Musculoskeletal Musculoskeletal: gait normal - Psychiatric Psychiatric: A&O x's 3, appropriate affect, intact judgment & insight Results CBC & Chem 7: 08/14/21 10:30 08/14/21 10:30 Labs: Abnormal Lab Results - Last 24 Hours (Table) 08/14/21 08/14/21 Range/Units 10:30 10:30 WBC 10.8 H (3.8-10.6) k/uL Hct 46.4 H (34.0-46.0) % Neutrophils # 7.9 H (1.3-7.7) k/uL Chloride 108 H (98-107) mmol/L Carbon Dioxide 18 L (22-30) mmol/L Glucose 111 H (74-99) mg/dL ALT 39 H (4-34) U/L Microbiology - Last 24 Hours (Table) 08/14/21 11:20 Wound Culture - Preliminary Back Thrombosis Risk Factor Assmnt - Choose All That Apply Any of the Below Risk Factors Present?: Yes Each Factor Represents 1 point: Obesity (BMI >25) Other Risk Factors: Yes Each Risk Factor Represents 2 Points: Age 61-74 years Thrombosis Risk Factor Assessment Total Risk Factor Score: 3 Thrombosis Risk Factor Assessment Level: Moderate Risk Assessment and Plan Assessment: Back abscess Mild leukocytosis History of sections History of hysterectomy Former smoker Full code Plan: Back abscess post incision and drainage, continue antibiotic therapy; consultation with general surgery for possible incision and drainage, consultation with infectious disease for recommendation of antibiotic therapy Mild leukocytosis continue to trend Continue home medications Continue medical management Continue to monitor vital signs and diagnostic testing Further recommendations come based on patient's clinical condition Hopeful discharge in the a.m. Time with Patient: Greater than 30
[2021-08-14] MEDS ORDERED: TEMAZEPAM 15 MG CAP PO SCH (21:00)
[2021-08-14] MEDS ORDERED: VANCOMYCIN 1,500 MG in SODIUM CHLORIDE 0.9% 250 ML IVPB SCH (22:00)
--- NOTE | 2021-08-14 23:27 | P.CONS ---
History of Present Illness - Reason for Consult Consult date: 08/14/21 back abscess Requesting physician: Maximilian Greene - Chief Complaint back pain and draiange x few days - History of Present Illness History of present illness : Patient is 61-year-old female presenting to the ER with concern for abscess on her back patient mention she did have a lump on her back for couple weeks to months however over the last week or so daily has become more swollen lymph and painful patient describes the pain to be more dull aching at times sharp about 5-6 out of 10 no radiation patient did have I&D done by her primary care physician last week and the patient has been treated with Bactrim DS and Ceftin however despite taking those antibiotics patient did have worsening of her wound to the mid back area patient describing more pain which is getting sharper 6-7 out of 10 no radiation did have mild drainage from the area denies have any fever with the symptom the patient was evaluated by ER physician on arrival to the ER the patient was afebrile patient did have white count of 10.8 with a left shift creatinine was normal rondon PCR was negative patient was started on Unasyn and vancomycin infectious disease was consulted for further management of antibiotic therapy Review of system: CONSTITUTIONAL: Positive for weakness denies high-grade fever. EYES: No complaint. ENT: No complaint. RESPIRATORY: No complaint. CARDIOVASCULAR: No complaint. GENITOURINARY: No complaint. GASTROINTESTINAL: No complaint. MUSCULOSKELETAL: No complaint. INTEGUMENTARY: As per history of present illness. PSYCHOLOGIC: No complaint. ENDOCRINE: No complaint. NEUROLOGIC: No complaint. Past medical history : Reviewed, documented below Past surgical history : Reviewed, documented below Social history: Reviewed, documented below Medications: Reviewed, as documented below EXAMINATION: Vital sigans= Reviewed and documented below GENERAL DESCRIPTION: Middle-aged female lying in bed, no distress. No tachypnea or accessory muscle of respiration use. HEENT: Shows Pallor , no scleral icterus. Oral mucous membrane is dry. NECK: Trachea central, no thyromegaly. LUNGS: Unlabored breathing. Clear to auscultation anteriorly. No wheeze or c rackle. HEART: S1, S2, regular rate and rhythm. ABDOMEN: Soft, no tenderness , guarding or rigidity EXTREMITIES: No edema of feet. SKIN: No rash, no masses palpable. Mild back did have an area of swelling induration erythema and tenderness to touch NEUROLOGICAL: The patient is awake, alert, oriented x3, mood and affect normal. LABS AND RADIOLOGY: Reviewed results see below Assessment : Patient with mid back abscess and cellulitis concern for possible infected sebaceous cyst that has failed to respond to the outpatient oral Bactrim and Ceftin therapy waiting for surgical removal of the infected cyst and deep culture Plan: 1-vancomycin pharmacy to dose her with a target trough of 15 while watching her kidney function and Vanco trough closely. 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 She has no history of STDs. History of Any Multi-Drug Resistant Organisms: None Reported Past Surgical History: Section, Hysterectomy Additional Past Surgical History / Comment(s): Colonoscopy 2012,c section x3, cysts removed from wrist Past Anesthesia/Blood Transfusion Reactions: No Reported Reaction Past Psychological History: No Psychological Hx Reported Smoking Status: Former smoker Past Alcohol Use History: None Reported Additional Past Alcohol Use History / Comment(s): quit smoking 2015,started smoking at age 17,<1ppd Past Drug Use History: None Reported - Past Family History Father Family Medical History: Myocardial Infarction ([place]) Mother Family Medical History: Deep Vein Thrombosis (DVT) Medications and Allergies Home Medications Medication Instructions Recorded Confirmed Type Acetaminophen Tab [Tylenol] 650 mg PO Q4H PRN 08/14/21 08/14/21 History Cefdinir [Omnicef] 300 mg PO Q12HR 08/14/21 08/14/21 History Sulfamethox-Tmp 800-160Mg [Bactrim 1 tab PO Q12HR 08/14/21 08/14/21 History DS 800-160 mg] Allergies Allergy/AdvReac Type Severity Reaction Status Date / Time No Known Allergies Allergy Verified 08/14/21 10:50 Physical Exam Vitals: Vital Signs Temp Pulse Pulse Pulse Resp BP BP 08/14/21 20:00 76 16 08/14/21 19:21 97.7 F 76 16 113/73 08/14/21 14:58 98.1 F 73 18 110/72 08/14/21 13:30 18 08/14/21 13:05 97.5 F L 82 18 124/82 08/14/21 12:50 98.2 F 70 18 124/94 08/14/21 09:55 98.4 F 82 18 127/70 Pulse Ox 08/14/21 20:00 08/14/21 19:21 96 08/14/21 14:58 99 08/14/21 13:30 08/14/21 13:05 98 08/14/21 12:50 99 08/14/21 09:55 98 Intake and Output 08/14/21 08/14/21 08/15/21 14:59 22:59 06:59 Intake Total 120 1120 Balance 120 1120 Intake: Oral 120 1120 Other: Voiding Method Toilet # Voids 1 2 Weight 83.915 kg Results CBC & Chem 7: 08/14/21 10:30 08/14/21 10:30 Labs: Abnormal Lab Results - Last 24 Hours (Table) 08/14/21 08/14/21 Range/Units 10:30 10:30 WBC 10.8 H (3.8-10.6) k/uL Hct 46.4 H (34.0-46.0) % Neutrophils # 7.9 H (1.3-7.7) k/uL Chloride 108 H (98-107) mmol/L Carbon Dioxide 18 L (22-30) mmol/L Glucose 111 H (74-99) mg/dL ALT 39 H (4-34) U/L Microbiology - Last 24 Hours (Table) 08/14/21 11:20 Wound Culture - Preliminary Back
[2021-08-15] MEDS: AMPICILLIN-SULBACTAM 1.5 GM in SODIUM CHLORIDE 0.9% 50 ML IVPB SCH ×2 (00:10→05:58)
[2021-08-15] MEDS: SODIUM CHLORIDE 0.9% 1,000 ML IV SCH (01:23)
[2021-08-15 05:30] LABS: ALT 30 U/L (4-34); AST 36 U/L (14-36); African American GFR (CKD) >90 (>60 ml/min/1.73 sqM); Albumin/Globulin Ratio 1.4; Alkaline Phosphatase 79 U/L (38-126); Anion Gap 7 mmol/L; Blood Urea Nitrogen 13 mg/dL (7-17); Calcium 9.1 mg/dL (8.4-10.2); Carbon Dioxide 21 mmol/L (22-30); Chloride 110 mmol/L (98-107); Globulin 2.9 g/dL; Glucose 108 mg/dL (74-99); Magnesium 2.3 mg/dL (1.6-2.3); Non-African American GFR(CKD) >90 (>60 ml/min/1.73 sqM); Sodium 138 mmol/L (137-145); Total Bilirubin 0.8 mg/dL (0.2-1.3); Total Protein 6.9 g/dL (6.3-8.2)
[2021-08-15 05:58] LABS: Potassium 5.3 mmol/L (3.5-5.1)
[2021-08-15 07:13] VITALS: BP 122/82; PULSE 66; RESP 18; TEMP 98.3
--- NOTE | 2021-08-15 07:27 | P.DS ---
Providers Date of admission: 08/14/21 10:20 Expected date of discharge: 08/15/21 Attending physician: Darrick Santana Consults: 08/14/21 10:19 Consult Physician Urgent Consulting Provider: Yeimy Canela Consult Reason/Comments: Back abscess Do you want consulting provider notified?: Yes 08/14/21 12:59 Consult Physician Urgent Consulting Provider: Rose Hale Consult Reason/Comments: back abcess- see today if possible Do you want consulting provider notified?: Yes Primary care physician: Darrick Santana Hospital Course: 61-year-old female was sent to the emergency room department for worsening of posterior mid thoracic back abscess post incision and drainage 2 days prior, increasing erythema and tenderness to touch. Patient was evaluated in emergency room room with diagnostic labs, mild leukocytosis and dehydration noted. Patient was placed on Unasyn and vancomycin for abscess coverage. Patient was evaluated by general surgery for possible incision and drainage, no plan for incision and drainage. Patient received IV antibiotics, will be discharged home on antibiotic therapy. Culture pending for anaerobic and aerobic, for antibiotic therapy. Patient tolerated hospital stay well. Assessment: Back abscess Mild leukocytosis with a left shift History of sections History of hysterectomy Former smoker Full code Final diagnosis Back abscess improved with IV antibiotics and continuous drainage from post incision and drainage Mild leukocytosis with a left shift Health Concerns: None noted Pertinent Studies: No studies Procedures: No procedures performed during hospital stay Patient Condition at Discharge: Good Plan - Discharge Summary New Discharge Prescriptions: No Action Sulfamethox-Tmp 800-160Mg [Bactrim DS 800-160 mg] 1 tab PO Q12HR Acetaminophen Tab [Tylenol] 650 mg PO Q4H PRN PRN Reason: Pain Cefdinir [Omnicef] 300 mg PO Q12HR Discharge Medication List Acetaminophen Tab [Tylenol] 650 mg PO Q4H PRN 08/14/21 [History] Cefdinir [Omnicef] 300 mg PO Q12HR 08/14/21 [History] Sulfamethox-Tmp 800-160Mg [Bactrim DS 800-160 mg] 1 tab PO Q12HR 08/14/21 [History] Follow up Appointment(s)/Referral(s): Darrick Santana MD [Primary Care Provider] - 1-2 days
[2021-08-15] MEDS ORDERED: VANCOMYCIN 1,500 MG in SODIUM CHLORIDE 0.9% 250 ML IVPB ONE (08:00)
[2021-08-15 09:23] LABS: Basophils # (A) 0.03 X 10*3/uL (0.00-0.10); Basophils % (A) 0.4 %; Eosinophils # (A) 0.27 X 10*3/uL (0.04-0.35); Eosinophils % (A) 3.6 %; HCT 45.8 % (37.2-46.3); HGB 14.6 g/dL (12.0-15.0); Lymphocytes # (A) 2.85 X 10*3/uL (0.90-5.00); Lymphocytes % (A) 37.6 %; MCH 28.6 pg (27.0-32.0); MCHC 31.9 g/dL (32.0-37.0); MCV 89.8 fL (80.0-97.0); Mean Platelet Volume 11.1 fL (9.5-12.2); Monocytes # (A) 0.58 X 10*3/uL (0.20-1.00); Monocytes % (A) 7.7 %; Neutrophils # (A) 3.82 X 10*3/uL (1.80-7.70); Neutrophils % (A) 50.4 %; Platelet Count 252 X 10*3/uL (140-440); RDW 13.3 % (11.5-14.5); WBC 7.57 X 10*3/uL (4.50-10.00)
--- NOTE | 2021-08-15 10:15 | P.PN ---
<GabyAnayeli mcneil - Last Filed: 08/15/21 10:11> Subjective Progress Note Date: 08/15/21 CHIEF COMPLAINT: Back abscess HISTORY OF PRESENT ILLNESS: Surgical service is following regards to patient's back abscess. Patient's back Is Showing Improvement. It Is decreasing in Size. She Is Still Having Purulent Drainage. She Reports a Decrease in Pain. She denies any nausea or vomiting. WBC normalized at 7.57 hemoglobin 14.6 PHYSICAL EXAM: VITAL SIGNS: Reviewed GENERAL: Well-developed in no acute distress. HEENT: No sclera icterus. Extraocular movements grossly intact. Moist buccal mucosa. Head is atraumatic, normocephalic. Hears conversational speech. No nasal drainage. NECK: Supple without lymphadenopathy. CHEST: Non-labored respirations and equal bilateral excursions. CARDIOVASCULAR: Palpable 2+ radial pulses. ABDOMEN: Soft. Nondistended. Nontender. MUSCULOSKELETAL: No clubbing or cyanosis. NEUROLOGIC: No focal or lateralizing signs. Cranial nerves II through XII grossly intact. PSYCH: Appropriate affect. Alert and oriented to person, place and time. SKIN: Patient's back abscess is decreasing in size. Decrease in erythema. Decrease in tenderness with palpation. Purulent drainage noted ASSESSMENT: 1. Back abscess PLAN: -No surgical intervention planned -Continue conservative management -Recommend oral antibiotics at discharge -Recommend warm compresses -Patient can be discharge from surgical standpoint Physician Graphite Pan Drier Tender note has been reviewed by physician. Signing provider agrees with the documented findings, assessment, and plan of care. Objective - Vital Signs Vital signs: Vital Signs Temp 98.3 F 08/15/21 07:00 Pulse 66 08/15/21 07:00 Resp 18 08/15/21 08:00 BP 122/82 08/15/21 07:00 Pulse Ox 98 08/15/21 07:00 Intake & Output 08/14/21 08/15/21 08/15/21 18:59 06:59 18:59 Intake Total 240 1500 300 Balance 240 1500 300 Weight 83.915 kg Intake: Oral 240 1500 300 Other: Voiding Method Toilet Toilet # Voids 0 2 - Labs CBC & Chem 7: 08/15/21 04:51 08/15/21 04:51 Labs: Abnormal Lab Results - Last 24 Hours (Table) 08/14/21 08/14/21 08/15/21 Range/Units 10:30 10:30 04:51 WBC 10.8 H (3.8-10.6) k/uL Hct 46.4 H (34.0-46.0) % MCHC 31.9 L (32.0-37.0) g/dL Neutrophils # 7.9 H (1.3-7.7) k/uL Potassium (3.5-5.1) mmol/L Chloride 108 H (98-107) mmol/L Carbon Dioxide 18 L (22-30) mmol/L Glucose 111 H (74-99) mg/dL ALT 39 H (4-34) U/L 08/15/21 Range/Units 04:51 WBC (3.8-10.6) k/uL Hct (34.0-46.0) % MCHC (32.0-37.0) g/dL Neutrophils # (1.3-7.7) k/uL Potassium 5.3 H (3.5-5.1) mmol/L Chloride 110 H (98-107) mmol/L Carbon Dioxide 21 L (22-30) mmol/L Glucose 108 H (74-99) mg/dL ALT (4-34) U/L Microbiology - Last 24 Hours (Table) 08/14/21 11:20 Gram Stain - Preliminary Back Wound Culture - Preliminary <Rose Hale - Last Filed: 08/15/21 12:27> Subjective As above. Please see additional documentation below. CHIEF COMPLAINT: Back abscess HISTORY OF PRESENT ILLNESS: The patient is a 61 year old female admitted with abscess. She was given IV antibiotics. She reports feeling better today. REVIEW OF ORGAN SYSTEMS: No chest pain. Denies fevers or chills. No signs of bleeding. PHYSICAL EXAM: VITALS: Reviewed CONSTITUTIONAL: Well developed and in no acute distress. EYES: Conjuctivae without sclera icterus. Extraocular movements grossly intact. HEAD, EARS, NOSE, THROAT: Moist buccal mucosa. Head is atraumatic, normocephal ic. Hears conversational speech. No nasal drainage. RESPIRATORY: Non-labored respirations and equal bilateral excursions. CARDIOVASCULAR: 2+ radial pulses. ABDOMEN: No peritonitis. MUSCULOSKELETAL: Nail and fingers with good capillary refill. SKIN: Back abscess 3 cm with seropurulent drainage. NEUROLOGIC: Cranial nerves II through XII grossly intact. No focal or lateralizing signs. PSYCH: Appropriate affect. Alert and oriented to person, place and time. Displays appropriate insight. CLINCAL LABS: Reviewed. WBC down to normal. ASSESSMENT: 1. Back abscess PLAN: 1. Continue oral antibiotics as outpatient. 2. Outpatient follow-up described. Objective - Vital Signs Vital signs: Vital Signs Temp 98.3 F 08/15/21 07:00 Pulse 66 08/15/21 07:00 Resp 18 08/15/21 08:00 BP 122/82 08/15/21 07:00 Pulse Ox 98 08/15/21 07:00 Intake & Output 08/14/21 08/15/21 08/15/21 18:59 06:59 18:59 Intake Total 240 1500 1640 Balance 240 1500 1640 Weight 83.915 kg Intake: IV 1340 Ampicillin-Sulbactam 1.5 50 gm In Sodium Chloride 0.9 % 50 ml @ 100 mls/hr IVPB Q6HR [facility] [place] Rx#:[id number] Sodium Chloride 0.9% 1, 1040 000 ml @ 130 mls/hr IV . Q7H42M [facility] Rx#:[id number] Vancomycin 1,500 mg In 250 Sodium Chloride 0.9% 250 ml @ 125 mls/hr IVPB ONCE ONE Rx#:[id number] Oral 240 1500 300 Other: Voiding Method Toilet Toilet # Voids 0 2 - Labs CBC & Chem 7: 08/15/21 04:51 08/15/21 04:51 Labs: Abnormal Lab Results - Last 24 Hours (Table) 08/15/21 08/15/21 Range/Units 04:51 04:51 MCHC 31.9 L (32.0-37.0) g/dL Potassium 5.3 H (3.5-5.1) mmol/L Chloride 110 H (98-107) mmol/L Carbon Dioxide 21 L (22-30) mmol/L Glucose 108 H (74-99) mg/dL Microbiology - Last 24 Hours (Table) 08/14/21 11:20 Gram Stain - Preliminary Back Wound Culture - Preliminary Assessment and Plan (1) Obesity due to excess calories Status: Acute Code(s): E66.09 - OTHER OBESITY DUE TO EXCESS CALORIES SNOMED Code(s): 883001107 (2) History of hysterectomy Status: Acute Code(s): Z90.710 - ACQUIRED ABSENCE OF BOTH CERVIX AND UTERUS SNOMED Code(s): 529974580 (3) Back abscess Status: Acute Code(s): L02.212 - CUTANEOUS ABSCESS OF BACK [ANY PART, EXCEPT BUTTOCK] SNOMED Code(s): 046483196
== END 2021-08-15 10:14 | disposition home or self-care (01) ==
LOC: EC 09:32 → 6NMEDSUR 10:20
PROVIDERS: ADMIT Family Medicine; ATTEND Family Medicine
DX: L02.212 Cutaneous abscess of back [any part, except buttock and flank] (principal); D72.829 Elevated white blood cell count, unspecified; E86.0 Dehydration; Z20.822 Contact with and (suspected) exposure to COVID-19; E66.09 Other obesity due to excess calories; Z68.31 Body mass index [BMI] 31.0-31.9, adult; Z90.710 Acquired absence of both cervix and uterus; Z87.891 Personal history of nicotine dependence; Z98.891 History of uterine scar from previous surgery; Z82.49 Family history of ischemic heart disease and other diseases of the circulatory system
CPT/HCPCS: 99284; 96366 ×2; 96365; 96367; 80053 ×2; 83605; 83735; 85025 ×2; 85610; 85730; 87040; 87070; 87205; 87635; G0378 ×2; J3370 ×2; J0295 ×3

== ENCOUNTER → 2022-05-12 | Outpatient (CLI) | payer MEDICAID ==
--- NOTE | 2022-05-12 16:37 | P.PN ---
Subjective Progress Note Date: 05/12/22 61-year-old female patient with a known history of obstructive sleep apnea who is coming in for a follow-up. Note that the patient has severe KOURTNEY, moderate severe KOURTNEY with an AHI of 28 and the patient has been treated over the years with CPAP therapy with rates success. Nevertheless, the patient is gradually became more interested in using other treatment modalities for sleep apnea and for that reason she had an evaluation with ENT physician. The patient already has undergone a septoplasty and turbinate surgery. She is also being considered for more surgical intervention including the possibility of a UPPP. Based on that, I repeated. Study was recommended to establish the presence and severity of obstructive sleep apnea. Meanwhile, the patient is using her CPAP therapy successfully. She is currently on a APAP mode and the patient has been admitted minimum pressure of 7 and a maximal pressure of 14. Based on the compliance data that was collected over the past 30 days, the patient is utilizing her machine 28 out of 30 and average pressure delivered rhythm and she is around 12 cm of water with an equal 6 L per minute and her AHI is down to 2.1 indicating very successful treatment. The patient has been utilizing the machine and is symptoms seeking alternatives. Her weight is stable at 199 pounds. No new onset medical problems and comorbidities over the past several years. The patient has no sinus ALLERGIES. No facial trauma. No major hypersomnia and sleepiness during the day although she is still feeling somewhat fatigued. She is going to bed around 9 PM, waking of 6:00 AM in the morning. No naps during the day. No sleep attacks. No snoring while on treatment. Objective - Exam BP is 132/84 with a pulse of 80 and respiration of 16 with a temperature 98.4 and oxygen saturations 98% and a neck size is 15 inches. Weight is 199 and BMI 34.1. The patient appeared well nourished and normally developed. Vital signs as documented. Head exam is unremarkable. No scleral icterus or corneal arcus noted. Neck is without jugular venous distension, thyromegaly, or carotid bruits. Carotid upstrokes are brisk bilaterally, and the patient is a Mallampati class IV. Lungs are clear to auscultation and percussion. Cardiac exam reveals the PMI to be normally sized and situated. Rhythm is regular. First and second heart sounds normal. No murmurs, rubs or gallops. Abdominal exam reveals normal bowel sounds, no masses, no organomegaly and no aortic enlargement. Extremities are nonedematous and both femoral and pedal pulses are normal.Examination of the skin revealed no evidence of significant rashes, suspicious appearing nevi or other concerning lesions.Neurologically, the patient is awake and alert and the patient does not have any focal neurological deficit. Cranial nerves are essentially intact. Assessment and Plan Plan: Obstructive sleep apnea moderate in severity with an AHI of 28 worsening a supine body position. The patient is currently on CPAP, successfully treated in an APAP mode pressure minimum of 7 and the maximum of 14. Septoplasty and turbinate surgery, being considered for UPPP Chronic fatigue and sleepiness, improved with CPAP therapy and the patient seems to quite compliant. Obesity with BMI of 35 Plan We'll do a home sleep study to establish diagnosis of sleep apnea and its severity. The patient has been effectively treated with CPAP therapy and she is seeking alternatives. This will largely depend on the severity of illness in regards to her obstructive sleep apnea. In my opinion, and the patient is successfully treated for now with CPAP therapy and considering other surgical alternatives will be her personal decision and choice. Based on data available on UPPP procedures, the success of these procedure is not comparable to CPAP therapy. It final decision will be done after obtaining a repeat home sleep study. I set up this patient for the study. I encourage her to lose weight. She has good sleep hygiene measures in general. We'll continue to follow. Her ENT physician Dr. Jaguar Serrano.
== END ==
LOC: SLEEP 14:59
PROVIDERS: ATTEND Internal Medicine Critical Care Medicine
DX: G47.33 Obstructive sleep apnea (adult) (pediatric) (principal); E66.9 Obesity, unspecified; R53.82 Chronic fatigue, unspecified; Z68.35 Body mass index [BMI] 35.0-35.9, adult; Z99.89 Dependence on other enabling machines and devices; Z98.890 Other specified postprocedural states

== ENCOUNTER → 2022-06-15 | Outpatient (CLI) | payer MEDICAID ==
--- NOTE | 2022-06-16 16:27 | MM ---
Reason for Exam: Screening (asymptomatic). Last mammogram was performed 1 year(s) and 1 month(s) ago. Patient History: Menarche at age 11. First Full-Term at age 17. Left ovary removed at age 47. Right ovary removed at age 47. Hysterectomy at age 47. Postmenopausal. Estrogen, starting at age 47 for 3 years, 6 months. Risk Values: Humera 5 year model risk: 1.1%. NCI Lifetime model risk: 5.0%. Prior Study Comparison: 09/19/2019 Bilateral Screening Mammogram, [facility]. 10/02/2019 Right Diagnostic Mammogram, [facility]. 05/26/2021 Bilateral Screening Mammogram, [facility]. Tissue Density: The breast tissue is heterogeneously dense. This may lower the sensitivity of mammography. Findings: Analyzed By CAD. There is no suspicious group of microcalcifications or new suspicious mass in either breast. No significant change from prior examination. Overall Assessment: Benign, BI-RAD 2 Management: Screening Mammogram of both breasts in 1 year. A clinical breast exam by your physician is recommended on an annual basis and results should be correlated with mammographic findings. Electronically signed and approved by: Gabriel Hernandez D.O.
== END | disposition home or self-care (01) ==
LOC: RADMAMWWP 16:30
PROVIDERS: ATTEND Family Medicine
DX: Z12.31 Encounter for screening mammogram for malignant neoplasm of breast (principal); Z78.0 Asymptomatic menopausal state
CPT/HCPCS: 77063; 77067

== ENCOUNTER → 2023-10-04 | Outpatient (CLI) | payer BC ==
--- NOTE | 2023-10-04 17:44 | BD ---
EXAMINATION TYPE: Axial Bone Density DATE OF EXAM: 10/04/2023 CLINICAL HISTORY: 63 years old Female. ICD-10 CODE: Z78.0 menopausal state Height: 63" Weight: 202.lbs FRAX RISK QUESTIONS: Alcohol (3 or more units per day): No Family History (Parent hip fracture): No Glucocorticoids (More than 3mos): No (Ex: prednisone, prednisolone, methylprednisolone, dexamethasone, and hydrocortisone). History of Fracture in Adulthood: No Secondary Osteoporosis: 1. Type 1 Diabetes: No 2. Hyperthyroidism: No 3. Menopause before 45: No 4. Malnutrition: No 5. Chronic liver disease: No Rheumatoid Arthritis: No Current Tobacco Use: No RISK FACTORS HISTORY OF: Hip Fracture (Right/Left): No Spine Fracture: No History of Wrist Fracture: No Surgery to Spine/Hip(right/left)/Wrist (right/left): No Family History of Osteoporosis: No Active: Yes Diet low in dairy products/other sources of calcium: No Postmenopausal woman: Yes Lost more than 2 inches in height since high school: No Frequent falls: No Poor Health: No Hyperparathyroidism: No Adrenal Insufficiency: No MEDICATIONS: Prednisone or other steroids: No Thyroid Medications: No Osteoporosis Medications: No Additional Medications: Patient does not take any prescription meds or supplements Additional History: None EXAM MEASUREMENTS: Bone mineral densitometry was performed using the Yodo1 System. Bone mineral density as measured about the Lumbar spine is: ----- L1-L4(G/cm2): 1.036 T Score Values are as follows: ----- L1: -0.5 ----- L2: -1.5 ----- L3: -0.6 ----- L4: -2.4 ----- L1-L4: -1.2 Z Score Values are as follows: ----- L1: 0.1 ----- L2: -0.8 ----- L3: 0.0 ----- L4: -1.8 ----- L1-L4: -0.6 Baseline @MPH Bone mineral density about the R hip (g/cm2): 0.947 Bone mineral density about the L hip (g/cm2): 0.968 T Score values are as follows: -----R Neck: -1.3 -----L Neck: -1.2 -----R Total: -0.5 -----L Total: -0.3 Z Score values are as follows: -----R Neck: -0.5 -----L Neck: -0.3 -----R Total: 0.0 -----L Total: 0.2 Baseline @MPH FRAX%s: The graph provided illustrates a 7.7% chance for a major osteoporotic fx and a 0.7% chance fo r the hips probability for fx in 10 years time. IMPRESSION: Osteopenia (T Score between -2.5 and -1). There is slightly increased risk of fracture and the patient may be considered for treatment. Re-Screen 2-5 years. NOTE: T-SCORE=SD OF THE YOUNG ADULT MEAN.
--- NOTE | 2023-10-05 18:42 | MM ---
Reason for Exam: Screening (asymptomatic). Last mammogram was performed 1 year(s) and 4 month(s) ago. Indicated Problems: Pain of the right side (Global) for 1 Month(s). Patient History: Menarche at age 11. First Full-Term at age 17. Left ovary removed at age 47. Right ovary removed at age 47. Hysterectomy at age 47. Postmenopausal. Patient has history of breast feeding. Estrogen, starting at age 47 for 3 years, 6 months. Risk Values: Humera 5 year model risk: 1.2%. NCI Lifetime model risk: 4.7%. Prior Study Comparison: 10/02/2019 Right Diagnostic Mammogram, [facility]. 05/26/2021 Bilateral Screening Mammogram, [facility]. 06/15/2022 Bilateral MG 3D screening mammo w/cad, [facility]. Tissue Density: The breast tissue is heterogeneously dense. This may lower the sensitivity of mammography. Findings: Analyzed By CAD. Areas of bilateral asymmetric densities remain unchanged. There is no suspicious group of microcalcifications or new suspicious mass in either breast. Overall Assessment: Benign, BI-RAD 2 Management: Screening Mammogram of both breasts in 1 year. Further clinical management of patient's intermittent right breast discomfort. Patient should continue monthly self-breast exams. A clinical breast exam by your physician is recommended on an annual basis. This exam should not preclude additional follow-up of suspicious palpable abnormalities. Note on Humera scores and lifetime risk: 1. A Humera score greater than 3% is considered moderate risk. If this is the case, consider specialist referral to assess eligibility for a risk reducing agent. 2. If overall lifetime risk for the development of breast cancer is 20% or higher, the patient may qualify for future screening with alternating mammogram and breast MRI. Electronically signed and approved by: Florian Bello M.D. Radiologist
== END | disposition home or self-care (01) ==
LOC: RADMAMWWP 15:53
PROVIDERS: ATTEND Family Medicine
DX: Z12.31 Encounter for screening mammogram for malignant neoplasm of breast (principal); M85.89 Other specified disorders of bone density and structure, multiple sites; Z78.0 Asymptomatic menopausal state
CPT/HCPCS: 77063; 77067; 77080

== ENCOUNTER → 2025-05-25 | Outpatient (CLI) | payer MEDICAID, MEDICARE ==
--- NOTE | 2025-05-25 11:34 | MM ---
Reason for Exam: Screening (asymptomatic). Last mammogram was performed 1 year(s) and 7 month(s) ago. Patient History: Menarche at age 11. First Full-Term at age 17. Left ovary removed at age 47. Right ovary removed at age 47. Hysterectomy at age 47. Postmenopausal. Patient has history of breast feeding. Estrogen, starting at age 47 for 3 years, 6 months. Risk Values: Humera 5 year model risk: 1.2%. NCI Lifetime model risk: 4.6%. Prior Study Comparison: 05/26/2021 Bilateral Screening Mammogram, [facility]. 06/15/2022 Bilateral MG 3D screening mammo w/cad, [facility]. 10/04/2023 Bilateral MG 3D screening mammo w/cad, [facility]. Tissue Density: The breasts are heterogeneously dense, which may obscure small masses. Findings: Analyzed By CAD. Right breast: Increasing calcifications left breast MLO view posterior nipple line 8.0 cm from nipple that is slightly lateral on CC view. Left breast: There is no suspicious group of microcalcifications or new suspicious mass. Overall Assessment: Incomplete: need additional imaging evaluation, BI-RAD 0 Management: Diagnostic Mammogram of the right breast. Indication views left breast MLO view posterior depth posterior nipple line and CC view posterior depth slightly lateral posterior nipple line. [facility] will attempt to contact patient to return for supplemental views and ultrasound if indicated. Patient should continue monthly self-breast exams. A clinical breast exam by your physician is recommended on an annual basis. This exam should not preclude additional follow-up of suspicious palpable abnormalities. Note on Humera scores and lifetime risk: 1. A Humera score greater than 3% is considered moderate risk. If this is the case, consider specialist referral to assess eligibility for a risk reducing agent. 2. If overall lifetime risk for the development of breast cancer is 20% or higher, the patient may qualify for future screening with alternating mammogram and breast MRI. [facility], , 05/25/2025 11:04 AM. Electronically signed and approved by: Pk Siegel DO
== END | disposition home or self-care (01) ==
LOC: RADMAMWWP 09:58
PROVIDERS: ATTEND Family Medicine
DX: Z12.31 Encounter for screening mammogram for malignant neoplasm of breast (principal); R92.333 Mammographic heterogeneous density, bilateral breasts; R92.1 Mammographic calcification found on diagnostic imaging of breast; Z78.0 Asymptomatic menopausal state
CPT/HCPCS: 77063; 77067

== ENCOUNTER → 2025-05-29 | Outpatient (CLI) | payer MEDICAID, MEDICARE ==
--- NOTE | 2025-05-29 08:34 | MM ---
Reason for Exam: Additional evaluation requested from abnormal screening. Last screening mammogram was performed less than 1 month ago. Patient History: Menarche at age 11. First Full-Term at age 17. Left ovary removed at age 47. Right ovary removed at age 47. Hysterectomy at age 47. Postmenopausal. Patient has history of breast feeding. Estrogen, starting at age 47 for 3 years, 6 months. Risk Values: Humera 5 year model risk: 1.2%. NCI Lifetime model risk: 4.6%. Tissue Density: Right: The breasts are heterogeneously dense, which may obscure small masses. Findings: Analyzed By CAD. The far posterior 9:00 calcifications are mixed regional and grouped punctate becoming less pronounced on magnification. These are probably benign and should be reassessed in 6 months. Overall Assessment: Probably benign, BI-RAD 3 Management: Diagnostic Mammogram of the right breast in 6 months. Results were given to the patient verbally at the time of exam. Patient should continue monthly self-breast exams. A clinical breast exam by your physician is recommended on an annual basis. This exam should not preclude additional follow-up of suspicious palpable abnormalities. Note on Humera scores and lifetime risk: 1. A Humera score greater than 3% is considered moderate risk. If this is the case, consider specialist referral to assess eligibility for a risk reducing agent. 2. If overall lifetime risk for the development of breast cancer is 20% or higher, the patient may qualify for future screening with alternating mammogram and breast MRI. [facility], , 05/29/2025 8:31 AM. Electronically signed and approved by: Florian Bello M.D. Radiologist
== END | disposition home or self-care (01) ==
LOC: RADMAMWWP 07:55
PROVIDERS: ATTEND Family Medicine
DX: R92.8 Other abnormal and inconclusive findings on diagnostic imaging of breast (principal); R92.331 Mammographic heterogeneous density, right breast; R92.1 Mammographic calcification found on diagnostic imaging of breast; Z78.0 Asymptomatic menopausal state
CPT/HCPCS: 77061; 77065